=== PATIENT | male | born 1990 | race Two or more races ===

== ENCOUNTER 2023-06-15 19:31 | Emergency (ER) | payer BC ==
[~2023-06-15] VITALS: Ht 180.3 cm; Wt 86.2 kg
[2023-06-15 21:04] LABS: HEMATOCRIT 43.3 % (39.0-48.0); HEMOGLOBIN 14.6 g/dL (13-16.00); MEAN CELL VOLUME 83.1 fL (80.0-100.00); MEAN CORPUSCULAR HGB CONC 33.7 g/dl (32.0-36.0); PLATELET COUNT 221 K/uL (150-450); RED BLOOD COUNT 5.21 M/uL (4.00-6.00); RED CELL DISTRIBUTION WIDTH 12.7 % (11.5-14.5)
== END 2023-06-16 01:04 | disposition home or self-care (01) ==
LOC: ER 19:31
PROVIDERS: General Practice
DX: B34.9 Viral infection, unspecified (principal); Z20.822 Contact with and (suspected) exposure to COVID-19